=== PATIENT | female | born 1970 | race African-American/Black ===

== ENCOUNTER → 2020-06-05 | Outpatient (CLI) | payer OTHER ==
--- NOTE | 2020-06-06 09:22 | RAD ---
EXAM: XR HIP (WITH OR WITHOUT PELVIS) RIGHT 1 VIEW 06/05/2020 12:34 PM CLINICAL INDICATION: Multiple sclerosis, labral tear. Right hip pain. COMPARISON: None available TECHNIQUE: AP view the pelvis and frog-leg lateral view of the right hip FINDINGS: No acute fracture. Alignment is normal. There is mild left hip joint space narrowing with osteophyte formation and mild subchondral sclerosis. Milder degenerative changes of the right hip wit h osteophytes and subchondral cysts but no significant joint space narrowing. The pubic symphysis, sa croiliac joints, and lower lumbar spine are normal. IMPRESSION: Mild osteoarthrosis of the hips, greater on the left. Electronically signed by: Amelia Conde MD (06/06/2020 9:19 AM) [id number]
== END ==
LOC: RAD 12:14
PROVIDERS: ATTEND Anesthesiology Pain Medicine
DX: Z02.71 Encounter for disability determination (principal); M16.0 Bilateral primary osteoarthritis of hip; G35 Multiple sclerosis
CPT/HCPCS: 73501